=== PATIENT | male | born 1990 | race Two or more races ===

== ENCOUNTER 2017-09-28 02:48 | Emergency (ER) | payer SELFPAY ==
[~2017-09-28] VITALS: Ht 172.7 cm; Wt 81.6 kg
[2017-09-28 04:15] LABS: Basophils # (auto) 0 uL; Basophils % (auto) 0.1 % (0.0-2.0); Eosinophils # (auto) 0 uL; Lymphocytes # (auto) 2.1 uL; Lymphocytes % (auto) 16.2 % (10.0-50.0); Mean Corpuscular Hemoglobin 30.9 pg (28.0-32.0); Mean Corpuscular Hgb Conc. 33.3 g/dL (32.0-36.0); Mean Corpuscular Volume 92.6 fL (80.0-100.0); Monocytes # (auto) 0.9 uL; Monocytes % (auto) 6.5 % (0.0-12.0); Neutrophils % (auto) 77.2 % (37.0-80.0); Nucleated Red Blood Cells % 0.1 %; Platelet Count (auto) 324 10^3/uL (140-450); Red Blood Cells 4.85 10^6/uL (4.5-5.90)
[2017-09-28 04:19] LABS: Urine Bacteria NONE SEEN /hpf (None Seen); Urine Blood Negative /uL (Negative); Urine Mucus FEW (None Seen); Urine Specific Gravity 1.035 (1.001-1.035); Urine WBC 2 /hpf (0 - 3)
[2017-09-28 04:33] LABS: Cannabinoid Screen, Urine POSITIVE (NEGATIVE)
[2017-09-28 04:35] LABS: Potassium 4.2 mmol/L (3.5-5.1)
[2017-09-28 04:39] LABS: Albumin 4.7 g/dL (3.4-5.0); BUN/Creatinine Ratio 23.6; Calcium 9.6 mg/dL (8.5-10.1)
[2017-09-28 04:43] LABS: Bilirubin, Total 1.1 mg/dL (0.2-1.0); Total Protein 8.3 g/dL (6.4-8.2)
[2017-09-28 04:44] LABS: Alcohol, Urine < 3.0 mg/dL (0-5); Amphetamine Screen, Urine NEGATIVE (NEGATIVE); Barbiturate Scree,Urine NEGATIVE (NEGATIVE); Benzodiazephine Screen, Urine NEGATIVE (NEGATIVE); Cocaine Screen, Urine NEGATIVE (NEGATIVE); Opiate Scree,Urine NEGATIVE (NEGATIVE); Phencyclidine Screen, Urine NEGATIVE (NEGATIVE)
[2017-09-28] MEDS ORDERED: SODIUM CHLORIDE 0.9% 1,000 ML IV ONE (07:51)
[2017-09-28] MEDS ORDERED: OLANZapine 5 MG TAB PO ONE (08:00)
[2017-10-01 02:05] VITALS: BP 124/72
== END 2017-10-01 02:25 | disposition home or self-care (01) ==
LOC: EDSEX 02:48 → ER 02:54
DX: F20.9 Schizophrenia, unspecified (principal); I10 Essential (primary) hypertension; R41.82 Altered mental status, unspecified
CPT/HCPCS: 36415; 80053; 80307; 81001; 82962; 83735; 84443; 85025; 96360

== ENCOUNTER 2017-10-01 11:03 | Emergency (ER) | payer SELFPAY ==
[~2017-10-01] VITALS: Ht 172.7 cm; Wt 86.2 kg
[2017-10-01 11:06] VITALS: BP 140/100
== END 2017-10-01 13:19 | disposition home or self-care (01) ==
LOC: EDBD 11:03 → ER 11:03
DX: F25.9 Schizoaffective disorder, unspecified (principal); I10 Essential (primary) hypertension; F41.9 Anxiety disorder, unspecified; F32.9 Major depressive disorder, single episode, unspecified